=== PATIENT | female | born 1950 | race Caucasian/White ===

== ENCOUNTER 2016-08-23 11:58 | Emergency (ER) | payer BC ==
[~2016-08-23] VITALS: Ht 162.6 cm; Wt 81.6 kg
[2016-08-23 12:28] LABS: BASOPHILS % (AUTO) 0.8 % (0.0-2.0); DIFF TOTAL % 100 %; EOSINOPHILS # (AUTO) 0.1 /CMM (0.0-0.7); EOSINOPHILS % (AUTO) 2.3 % (0.0-6.0); HEMATOCRIT 41 % (33-45); LYMPHOCYTES # (AUTO) 1.1 /CMM (0.8-4.8); LYMPHOCYTES % (AUTO) 24.9 % (20.0-44.0); MEAN CORPUSCULAR HEMOGLOBIN 26 PG (26.0-33.0); MEAN CORPUSCULAR HGB CONC 32 g/dl (31.0-36.0); MEAN CORPUSCULAR VOLUME 81 fL (82-100); MONOCYTES # (AUTO) 0.4 /CMM (0.1-1.30); MONOCYTES % (AUTO) 8.6 % (2.0-12.0); NEUTROPHILS # (AUTO) 2.6 /CMM (1.8-8.9); NEUTROPHILS % (AUTO) 63.4 % (43.0-81.0); PLATELET COUNT (AUTO) 195 /CMM (150-450); RED BLOOD CELL COUNT(AUTO) 5.03 MIL/uL (4.0-5.2); WHITE BLOOD COUNT (AUTO) 4.2 K/uL (4.3-11.0)
[2016-08-23 12:35] LABS: ANION GAP 16 (5-14); CALCIUM, SERUM 9.6 mg/dL (8.5-10.1); CARBON DIOXIDE 28 mmol/L (21-32); CHLORIDE 102 mmol/L (98-107); CREATININE 0.5 mg/dL (0.6-1.3); GFR 124 mL/min (>60); GLUCOSE 105 mg/dL (74-106); POTASSIUM 4.1 mmol/L (3.5-5.1); SODIUM SERUM 141 mmol/L (136-145); UREA NITROGEN, BLOOD 13 mg/dL (7-18)
[2016-08-23 12:43] LABS: TROPONIN I < 0.017 ng/mL (0.00-0.056)
[2016-08-23 12:47] LABS: ALANINE AMINOTRANSFERASE 17 U/L (12-78); ALBUMIN 3.9 g/dL (3.4-5.0); ASPARTATE AMINOTRANSFERASE 14 U/L (15-37); BILIRUBIN,DIRECT 0.1 mg/dL (0.0-0.2); BILIRUBIN,TOTAL 0.6 mg/dL (0.2-1.0); INDIRECT BILIRUBIN 0.5 mg/dL (0.0-1.1)
[2016-08-23 12:49] LABS: KETONES,URINE Negative (NEGATIVE); LEUKOCYTE ESTERASE ,URINE Small (NEGATIVE)
[2016-08-23 12:52] LABS: ADD UA MICROSCOPIC YES
[2016-08-23 13:02] LABS: ADD URINE CULTURE NO; RBC,URINE 0-2 /HPF (0-2)
[2016-08-23 13:30] VITALS: BP 148/85
== END 2016-08-23 13:32 | disposition home or self-care (01) ==
LOC: ER 12:01
DX: R11.2 Nausea with vomiting, unspecified (principal); I10 Essential (primary) hypertension; E11.9 Type 2 diabetes mellitus without complications
CPT/HCPCS: 36415; 71010; 80048; 80076; 81001; 83690; 84484; 85025; 93005; 99285; A4606; Z7610; 81000-TC

== ENCOUNTER 2017-08-03 11:33 | Emergency (ER) | payer BC ==
[~2017-08-03] VITALS: Ht 152.4 cm; Wt 75.3 kg
--- NOTE | 2017-08-03 11:40 | NUR ---
bib family c/o right leg swelling x 3 weeks. pain +, nad noted, vss, resp even and unlabored. pt put on monitor waiting for md waldron.
[2017-08-03] MEDS ORDERED: MORPHINE SULFATE INJ 2 MG/ML DISP.SYRIN IV ONE (13:00)
[2017-08-03] MEDS ORDERED: IV NS 0.9% 1,000 ML BAG IV ONE (13:00)
[2017-08-03] MEDS ORDERED: ONDANSETRON HCL/PF 4 MG/2 ML VIAL IVP ONE (13:00)
[2017-08-03] MEDS ORDERED: ONDANSETRON HCL/PF 4 MG/2 ML VIAL ONE (13:08)
[2017-08-03] MEDS ORDERED: MORPHINE SULFATE INJ 4 MG/ML DISP.SYRIN ONE (13:08)
[2017-08-03 13:10] LABS: BASOPHILS % (AUTO) 0.5 % (0.0-2.0); EOSINOPHILS # (AUTO) 0.1 /CMM (0.0-0.7); EOSINOPHILS % (AUTO) 2.2 % (0.0-6.0); HEMATOCRIT 33 % (33-45); HEMOGLOBIN 11.1 g/dL (11.5-14.8); LYMPHOCYTES # (AUTO) 0.9 /CMM (0.8-4.8); LYMPHOCYTES % (AUTO) 25.1 % (20.0-44.0); MEAN CORPUSCULAR HEMOGLOBIN 27 PG (26.0-33.0); MEAN CORPUSCULAR HGB CONC 34 g/dl (31.0-36.0); MEAN CORPUSCULAR VOLUME 80 fL (82-100); MONOCYTES # (AUTO) 0.4 /CMM (0.1-1.30); MONOCYTES % (AUTO) 12.1 % (2.0-12.0); NEUTROPHILS # (AUTO) 2.2 /CMM (1.8-8.9); NEUTROPHILS % (AUTO) 60.1 % (43.0-81.0); PLATELET COUNT (AUTO) 145 /CMM (150-450); RDW COEFFICIENT OF VARIATION 16.3 (11.5-15.0); RED BLOOD CELL COUNT(AUTO) 4.13 MIL/uL (4.0-5.2); WHITE BLOOD COUNT (AUTO) 3.6 K/uL (4.3-11.0)
[2017-08-03 13:26] LABS: ALBUMIN 3.7 g/dL (3.4-5.0); BILIRUBIN,DIRECT 0.1 mg/dL (0.0-0.2); BILIRUBIN,TOTAL 0.5 mg/dL (0.2-1.0); CALCIUM, SERUM 9.2 mg/dL (8.5-10.1); CREATININE 0.6 mg/dL (0.6-1.3); INR 0.91 (0.87-1.13); TOTAL PROTEIN, SERUM 7.6 g/dL (6.4-8.2)
--- NOTE | 2017-08-03 14:22 | NUR ---
urine collected sent to lab
--- NOTE | 2017-08-03 14:28 | NUR ---
ADMITTING WILL CALL [facility] TO START TRANSFER TO [facility]
[2017-08-03 14:41] LABS: APPEARANCE,URINE Clear (CLEAR); BILIRUBIN,URINE Negative (NEGATIVE); BLOOD, URINE Trace-lysed Ery/uL (NEGATIVE); COLOR,URINE Yellow (YELLOW); KETONES,URINE Negative (NEGATIVE); LEUKOCYTE ESTERASE ,URINE Large (NEGATIVE); NITRITE, URINE Negative (NEGATIVE); PROTEIN,URINE Negative (NEGATIVE); UGLUCOSE Negative (NEGATIVE); UROBILINOGEN,URINE 0.2 EU/dL (0.2)
[2017-08-03 14:45] LABS: BACTERIA,URINE Rare /HPF (None Seen); SQUAMOUS EPITHELIAL CELL,UR Few /HPF (None Seen); WBC,URINE 21-50 /HPF (0-3)
--- NOTE | 2017-08-03 15:36 | NUR ---
FAXED FACESHEET AND CLINICALS TO [phone]
--- NOTE | 2017-08-03 16:05 | NUR ---
DR CARVALHO ON THE PHONE WITH DR GALLARDO AT [facility]
--- NOTE | 2017-08-03 17:00 | NUR ---
I RECEIVED A CALL FROM SHAQ FROM [facility] SHE NOTIFIED ME THAT [facility] THEY NOTIFIED ME THAT THEY ARE UNABLE TO ACCEPT PATIENT DUE TO NO ONCOLOGIST.
--- NOTE | 2017-08-03 17:15 | NUR ---
SHAQ NOTIFIED ME THAT PATIENT WAS ACCEPTED BY [facility] [place] HOWEVER AT THIS TIME THERE ARE NO BEDS AVAILABLE AT [facility]
--- NOTE | 2017-08-03 17:45 | NUR ---
CALLED [facility] REQUESTING HIGHER LEVEL OF CARE, CHEIKH NOTIFIED ME THAT THERE ARE NO [facility] BEDS AVAILABLE.
--- NOTE | 2017-08-03 17:47 | NUR ---
SPOKE WITH MARTHA MCGUIRECAR SEALER AT [facility] SHE NOTIFIED ME THAT THERE WILL NOT BE A BED AVAILABLE FOR PATIENT TODAY TO CALL AGAIN TOMORROW AFTERNOON.
--- NOTE | 2017-08-03 18:04 | NUR ---
CALLED [facility] SPOKE WITH KENIA SHE NOTIFIED ME THAT THERE IS NOTHING SHE CAN DO REGARDING PATIENT PLACEMENT.
--- NOTE | 2017-08-03 18:41 | NUR ---
CALLED [facility] SPOKE WITH KAROLYN, HE NOTIFIED ME THAT THERE ARE NO AVAILABLE BEDS.
--- NOTE | 2017-08-03 18:46 | NUR ---
CALLED [facility] I SPOKE WITH ROSIBEL SHE NOTIFIED ME THAT THEY HAVE NO BEDS AVAILABLE.
--- NOTE | 2017-08-03 19:26 | NUR ---
CALLED [facility] SPOKE WITH NURSING ICING COATER, I PROVIDED THEM INFORMATION AND CALL BACK NUMBER, THEY WILL CALL ME BACK SOON THEY ARE FINISHED WITH REPORT.
--- NOTE | 2017-08-03 21:34 | NUR ---
Patient does not wish to proceed with medical care recommended by Dr. Burgos. Patient given information related to possible complications, up to and including , which could occur as a result of leaving the hospital at this time. Patient verbalizes understanding of risks involved due to leaving against medical advice. Patient has signed AMA form. Per patient "We cant wait here any longer".
[2017-08-03 21:38] VITALS: BP 145/80
== END 2017-08-03 21:39 | disposition left against medical advice (07) ==
LOC: ER 11:37
DX: R19.00 Intra-abdominal and pelvic swelling, mass and lump, unspecified site (principal); R60.0 Localized edema; I10 Essential (primary) hypertension; E11.9 Type 2 diabetes mellitus without complications
CPT/HCPCS: 36415; 80048-TC; 80076-TC; 81000-TC; 85025-TC; 85730-TC; 87081-TC; 87086-TC; A4606; J2270; J2405; J7030; Z7610